=== PATIENT | female | born 1960 | race Caucasian/White ===

== ENCOUNTER 2018-09-05 11:14 | Emergency (ER) | payer BC, OTHER ==
[~2018-09-05] VITALS: Ht 149.9 cm; Wt 68.8 kg
[2018-09-05 11:24] VITALS: Ht 149.9 cm; Wt 68.8 kg
--- NOTE | 2018-09-05 12:56 | ERD ---
ER Documentation Chief Complaint Chief Complaint vomiting with dizziness x this am HPI 57-year-old female history of hypertension presents the ED complaining of acute onset of moderate, crampy, twisting, nonradiating epigastric and right upper quadrant pain with nausea that started this morning. No vomiting, diarrhea, constipation or melanotic stools. Denies chest pain, palpitations or shortness of breath. Pain is decreased but not resolved. No dysuria, polyuria, hematuria or flank pain. No relieving or exacerbating factors. No fevers or chills. ROS All systems reviewed and are negative except as per history of present illness. Medications Home Meds Active Scripts Ondansetron Hcl* (Zofran*) 4 Mg Tablet, 4 MG PO Q6H for NAUSEA AND/OR VOMITING, #12 TAB Prov:LISA OKEEFE MD 09/05/18 Hydrocodone/Acetaminophen ([place] 5-325 Tablet) 1 Each Tablet, 1 TAB PO Q6H PRN for PAIN LEVEL 6-10, #7 TAB Prov:LISA OKEEFE MD 09/05/18 Ibuprofen* (Motrin*) 600 Mg Tab, 600 MG PO Q6 PRN for PAIN LEVEL 1-5, #20 TAB Prov:LISA OKEEFE MD 09/05/18 Reported Medications Losartan Potassium* (Losartan Potassium*) 25 Mg Tablet, 25 MG PO DAILY, TAB 09/05/18 Allergies Allergies: Coded Allergies: No Known Allergy (Unverified , 09/05/18) PMhx/Soc History of Surgery: No Anesthesia Reaction: No Hx Neurological Disorder: No Hx Respiratory Disorders: No Hx Cardiac Disorders: Yes (htn) Hx Psychiatric Problems: No Hx Miscellaneous Medical Probl: No Hx Alcohol Use: No Hx Substance Use: No Hx Tobacco Use: No Smoking Status: Never smoker FmHx No diabetes, heart disease or cancer Physical Exam Vitals Vital Signs Date Temp Pulse Resp B/P (MAP) Pulse Ox O2 O2 Flow FiO2 Time Delivery Rate 09/05/18 97.8 70 16 122/75 100 Room Air 15:27 (91) 09/05/18 97.8 66 18 117/71 100 Room Air 14:30 (86) 09/05/18 97.8 73 16 136/65 100 11:24 (88) Physical Exam Const: Moderate distress. Head: Atraumatic Eyes: Normal Conjunctiva. Anicteric. ENT: Normal External Ears, Nose and Mouth. Neck: Full range of motion. No meningismus. Resp: Clear to auscultation bilaterally Cardio: Regular rate and rhythm, no murmurs Abd: Soft, mild right upper quadrant tenderness, non distended. Negative Tavera sign. No rebound or guarding. Normal bowel sounds Skin: No petechiae or rashes Back: No midline or flank tenderness Ext: No cyanosis, or edema Neur: Awake and alert Psych: Normal Mood and Affect Result Diagram: 09/05/18 1308 09/05/18 1308 Results 24 hrs Laboratory Tests Test 09/05/18 13:08 White Blood Count 9.1 10^3/ul Red Blood Count 5.08 10^6/ul Hemoglobin 14.8 g/dl Hematocrit 43.7 % Mean Corpuscular Volume 86.0 fl Mean Corpuscular Hemoglobin 29.1 pg Mean Corpuscular Hemoglobin Concent 33.9 g/dl Red Cell Distribution Width 12.8 % Platelet Count 366 10^3/UL Mean Platelet Volume 10.3 fl Immature Granulocytes % 0.400 % Neutrophils % 82.3 % Lymphocytes % 12.8 % Monocytes % 4.1 % Eosinophils % 0.1 % Basophils % 0.3 % Nucleated Red Blood Cells % 0.0 /100WBC Immature Granulocytes # 0.040 10^3/ul Neutrophils # 7.5 10^3/ul Lymphocytes # 1.2 10^3/ul Monocytes # 0.4 10^3/ul Eosinophils # 0.0 10^3/ul Basophils # 0.0 10^3/ul Nucleated Red Blood Cells # 0.0 10^3/ul Urine Color CINDI Urine Clarity SLIGHTLY CLOUDY Urine pH 9.0 Urine Specific [place] 1.025 Urine Ketones 1+ mg/dL Urine Nitrite NEGATIVE mg/dL Urine Bilirubin 1+ mg/dL Urine Urobilinogen NEGATIVE mg/dL Urine Leukocyte Esterase NEGATIVE Melinda/ul Urine Microscopic RBC 8 /HPF Urine Microscopic WBC 0 /HPF Urine Squamous Epithelial Cells FEW /HPF Urine Mucus MANY /HPF Urine Hemoglobin NEGATIVE mg/dL Urine Glucose NEGATIVE mg/dL Urine Total Protein 2+ mg/dl Sodium Level 139 mmol/L Potassium Level 3.7 mmol/L Chloride Level 103 mmol/L Carbon Dioxide Level 23 mmol/L Anion Gap 13 Blood Urea Nitrogen 10 mg/dl Creatinine 0.59 mg/dl Est Glomerular Filtrat Rate mL/min > 60 mL/min Glucose Level 115 mg/dl Calcium Level 9.9 mg/dl Total Bilirubin 0.7 mg/dl Direct Bilirubin 0.00 mg/dl Indirect Bilirubin 0.7 mg/dl Aspartate Amino Transf (AST/SGOT) 29 IU/L Alanine Aminotransferase (ALT/SGPT) 21 IU/L Alkaline Phosphatase 105 IU/L Troponin I < 0.012 ng/ml Total Protein 8.1 g/dl Albumin 4.6 g/dl Globulin 3.50 g/dl Albumin/Globulin Ratio 1.31 Lipase 59 U/L Current Medications Medications Dose Sig/Venancio Start Time Status Last (Trade) Ordered Route PRN Stop Time Admin Dose Reason Admin Sodium 500 ml @ Q1H STAT 09/05/18 DC 09/05/18 Chloride 500 mls/hr IV 12:57 13:14 09/05/18 13:56 Ondansetron 4 mg ONCE STAT 09/05/18 DC 09/05/18 HCl (Zofran IV 12:57 13:14 Inj) 09/05/18 13:04 Famotidine 20 mg ONCE STAT 09/05/18 DC 09/05/18 (Pepcid Iv) IV 12:57 13:14 09/05/18 13:04 Ketorolac 10 mg ONCE STAT 09/05/18 DC 09/05/18 Tromethamine IV 12:57 13:15 (Toradol) 09/05/18 13:04 Procedures/MDM DOCUMENTS REVIEWED: ED nurse, prior ED visit in 2013 EKG: Time: 1328. Sinus rhythm. Ventricular rate 70. Normal SD and QRS. No ectopy. T wave inversions in lead I to the V4. No acute ST segment elevation or depression. My Interpretation IMAGING: PROCEDURE: US Abdomen. CLINICAL INDICATION: Pain TECHNIQUE: Multiple real-time images were acquired of the patient's abdomen and retroperitoneum utilizing a high resolution transducer. COMPARISON: None FINDINGS: The liver is of normal size, contour and echogenicity with no mass or intrahepatic ductal dilatation. Portal and hepatic vein are patent on color flow Doppler imaging. The common bile duct measures 2.8 millimeter in transverse diameter. there is a stone in the neck of the gallbladder. Gallbladder wall is not thickened and no abnormal pericholecystic fluid collection is seen. No sonographic Tavera's sign was elicited during this exam. There is no ascites. The pancreas is normal with no mass or ductal dilatation. The right kidney measures 10.6 cm in length. No hydronephrosis, calculus or masses seen.. There is no evidence of abdominal aortic aneurysm or caval thrombosis. IMPRESSION: Stone neck gallbladder without evidence of cholecystitis or biliary obstruction. .Arjun Monroy MD, Date Time Electronically viewed and signed by .Arjun Monroy MD, on 09/05/2018 14:52 .A/ [employer]KIN-year-old female history of hypertension presents to the ED for evaluation of a 1 day history of abdominal pain. CBC is negative for leukocytosis or anemia. Chemistry reveals no evidence of electrolyte abnormalities, renal insufficiency or hyperglycemia. LFTs show no hyperbil irubinemia or transaminitis. Lipase is not elevated are consistent with pancreatitis. Ultrasound findings as above consistent with cholelithiasis without cholecystitis. EKG negative for ischemia or dysrhythmia. Troponin is not elevated. Presentation not consistent with ACS. Pain resolved with intravenous hydration and analgesics. Stable for discharge with precautionary instructions and outpatient follow-up as counseled. Counseled patient regarding diagnostic workup, diagnosis and need for followup. Understands to return to ED if symptoms recur, worsen or any other concerns. Departure Diagnosis: Primary Impression: Acute abdominal pain in right upper quadrant Additional Impressions: Biliary colic Cholelithiases Cholelithiasis location: gallbladder Cholecystitis presence: without cholecystitis Biliary obstruction: without biliary obstruction Qualified Codes: K80.20 - Calculus of gallbladder without cholecystitis without obstruction Condition: Stable (Improved) LISA OKEEFE MD Sep 05, 2018 12:56
[2018-09-05] MEDS ORDERED: SOD CHLORIDE 0.9% 500 ML IV STA (12:57)
[2018-09-05] MEDS ORDERED: ONDANSETRON 4 MG INJ IV STA (12:57)
[2018-09-05] MEDS ORDERED: FAMOTIDINE 20 MG INJ IV STA (12:57)
[2018-09-05] MEDS ORDERED: KETOROLAC 15 MG INJ IV STA (12:57)
[2018-09-05] MEDS ORDERED: LOSA25TA12 PO (13:50)
[2018-09-05] MEDS ORDERED: HYDR-4011 PO (15:14)
[2018-09-05] MEDS ORDERED: IBUP-1542 PO (15:14)
[2018-09-05] MEDS ORDERED: ONDA4TAB8 PO (15:14)
[2018-09-05 15:27] VITALS: BP 122/75; PULSE 70; RESP 16
== END 2018-09-05 15:30 | disposition home or self-care (01) ==
LOC: E/R 11:14
DX: K80.20 Calculus of gallbladder without cholecystitis without obstruction (principal); I10 Essential (primary) hypertension
CPT/HCPCS: 36415; 76705; 80053; 81001; 83690; 84484; 85025; 93005; 96374; 96375; J1885; J2405; J7040; Z7502; Z7610